=== PATIENT | male | born 1980 | race Caucasian/White ===

== ENCOUNTER 2017-02-26 16:44 | Emergency (ER) | payer MEDICAID ==
[~2017-02-26] VITALS: Ht 182.9 cm; Wt 85.7 kg
--- NOTE | 2017-02-26 17:02 | Emergency Room Report ---
History of Present Illness General Chief Complaint: Headache Source: Patient Present Illness HPI The patient is a 36 old male with a history of migraine headaches presenting for headache.He states this feels typical of his migraine headache. Symptoms began 2 days prior. Pain is a 6/10 dull ache to the front of the head. Pain does not radiate. Lights and sounds make it worse. He has tried Motrin and Tylenol which temporarily relieves the pain. He states that he was on pain management in the past for frequent migraines and was taking 300 mg of tramadol a day. He admits to nausea but denies vomiting. He denies other symptoms including neck pain or stiffness, fever, chills, blurred vision, weakness, numbness/tingling Allergies: Coded Allergies: No Known Allergies (Unverified , 02/26/17) Patient History Past Medical History: see triage record Pertinent Family History: none Reviewed Nursing Documentation: PMH: Agreed, PSxH: Agreed Nursing Documentation-PMH Past Medical History: No History, Except For Review of Systems All Other Systems: negative except mentioned in HPI Physical Exam Vital Signs Date Time Temp Pulse Resp B/P Pulse Ox O2 Delivery O2 Flow Rate FiO2 02/26/17 16:53 98.8 113 16 137/86 96 Room Air Sp02 EP Interpretation: reviewed, normal General Appearance: no apparent distress, alert, GCS 15, non-toxic Head: normocephalic, atraumatic Eyes: bilateral eye EOMI, bilateral eye PERRL, bilateral eye normal inspection ENT: hearing grossly normal, normal pharynx, no angioedema, normal voice Neck: full range of motion, no bony tend, supple/symm/no masses Musculoskeletal: back normal, gait/station normal, normal range of motion, non- tender Neurologic: alert, oriented x3, responsive, motor strength/tone normal, sensory intact, normal gait, speech normal Psychiatric: judgement/insight normal, memory normal, mood/affect normal, no suicidal/homicidal ideation Skin: normal color, no rash, warm/dry, well hydrated Lymphatic: no adenopathy Medical Decision Making PA Attestation Dr. Eduardo is my supervising physician. Patient management was discussed with my supervising physician Diagnostic Impression: Primary Impression: Migraine Qualified Codes: G43.909 - Migraine, unspecified, not intractable, without status migrainosus ER Course The patient is a 36 old male with a history of migraine headaches presenting for headache Differential diagnoses include but not limited to Migraine, tension headache, drug seeking behavior, among others PE: No apparent distress. A&Ox4 Head NC/AT PERRL. EOMI. Normal mentation. Neck is soft and supple Pt requesting Dilaudid CURES report unremarkable He is first given IM Toradol, Benadryl, and Reglan He states that this did not help He is then given tramadol and states that pain has improved He'll be discharged home with a limited prescription of tramadol. He needs to followup with pain management and his primary doctor ER precautions given Chest X-Ray Diagnostic Results Chest X-Ray Ordered: No Last Vital Signs Date Time Temp Pulse Resp B/P Pulse Ox O2 Delivery O2 Flow Rate FiO2 02/26/17 16:53 98.8 113 16 137/86 96 Room Air Status: improved Disposition: HOME, SELF-CARE Condition: Improved Scripts Tramadol Hcl* (ULTRAM*) 50 Mg Tablet 50 MG ORAL Q6H Y for For Pain, #10 TAB 0 Refills Prov: SAWYER ADAME 02/26/17 SAWYER ADAME Feb 26, 2017 17:02
[2017-02-26 17:04] VITALS: BP 137/86
[2017-02-26] MEDS ORDERED: Ketorolac 30mg Inj IM ONE (17:15)
[2017-02-26] MEDS: DiphenhydrAMINE 50mg/ml Inj IM ONE ×2 (17:19→17:27)
[2017-02-26] MEDS: Metoclopramide 10mg/2ml Inj IM ONE ×2 (17:19→17:27)
[2017-02-26] MEDS ORDERED: traMADol 50mg tab ORAL ONE (18:15)
[2017-02-26 18:20] VITALS: BP 135/78
[2017-02-26] MEDS ORDERED: TRAMADOL HCL50 MG ORAL (18:21)
[2017-02-26 18:30] VITALS: BP 135/78
== END 2017-02-26 18:30 | disposition home or self-care (01) ==
LOC: EMR 17:20
DX: G43.909 Migraine, unspecified, not intractable, without status migrainosus (principal)
CPT/HCPCS: 96372; 99283; J1200; J1885; J2765